=== PATIENT | female | born 1975 | race Hispanic/Latino ===

== ENCOUNTER 2023-06-17 21:29 | Emergency (ER) | payer BC, MEDICAID ==
[~2023-06-17] VITALS: Ht 149.9 cm; Wt 78.5 kg
[2023-06-17] MEDS ORDERED: ONDANSETRON 4MG INJ ONE (22:01)
[2023-06-17 22:07] LABS: APPEARANCE,URINE CLOUDY (CLEAR); BILIRUBIN,URINE NEGATIVE (NEGATIVE); COLOR,URINE YELLOW (YELLOW); GLUCOSE, URINE (UA) NEGATIVE (NEGATIVE); KETONES,URINE 5 mg/dL (NEGATIVE); LEUKOCYTE ESTERASE ,URINE NEGATIVE Leu/uL (NEGATIVE); NITRATE,URINE NEGATIVE (NEGATIVE); PH,URINE 5.5 (5.0-8.0); PROTEIN,URINE 100 mg/dL (NEGATIVE); UROBILINOGEN,URINE 0.2 mg/dL (0.2-1.0)
[2023-06-17 22:13] LABS: BASOPHILS # (AUTO) 0.02 K/uL (0.00-0.20); BASOPHILS % (AUTO) 0.2 % (0.0-5.0); EOSINOPHILS % (AUTO) 1.7 % (0.0-8.0); HEMATOCRIT 40.4 % (36-48); IMMATURE GRANULOCYTE ABSOLUTE 0.03 K/uL (0-1); LYMPHOCYTES % (AUTO) 9.1 % (21.0-51.0); MEAN CORPUSCULAR HEMOGLOBIN 28.7 pg (27.0-33.0); MEAN CORPUSCULAR HGB CONC 32.7 g/dL (32.0-36.0); MEAN CORPUSCULAR VOLUME 87.8 fL (79-99); MONOCYTES # (AUTO) 0.4 K/uL (0.1-1.0); MONOCYTES % (AUTO) 3.6 % (3.0-13.0); NEUTROPHILS # (AUTO) 9.7 K/uL (1.8-7.7); NEUTROPHILS % (AUTO) 85.1 % (40.0-77.0); PLATELET COUNT (AUTO) 280 K/uL (130-400); WHITE BLOOD COUNT (AUTO) 11.4 K/uL (4.8-10.8)
[2023-06-17 22:15] LABS: SARS-CoV-2, RNA, NAAT NEGATIVE SARS CoV-2 (NEGATIVE)
[2023-06-17 22:17] LABS: ADD UA MICROSCOPIC YES
[2023-06-17] MEDS ORDERED: DIPHENOXYLATE HCL/ATROPINE 2.5/0.025 MG TAB PO ONE ×2 (22:20→22:30)
[2023-06-17 22:23] LABS: INFLUENZA TYPE A Negative For Type A (NEGATIVE); INFLUENZA TYPE B Negative For Type B (NEGATIVE)
[2023-06-17 22:25] LABS: CREATININE 0.8 mg/dL (0.5-1.5); POTASSIUM 3.6 mmol/L (3.5-5.1)
[2023-06-17 22:30] LABS: ALBUMIN 4.2 g/dL (3.5-5.0); BILIRUBIN,TOTAL 0.5 mg/dL (0.2-1.0); TOTAL PROTEIN, SERUM 8.3 g/dL (6.0-8.3)
[2023-06-17] MEDS ORDERED: ONDANSETRON 4MG INJ IVP ONE (22:30)
[2023-06-17] MEDS ORDERED: 0.9%NACL 1000ML 1,000 ML IV ONE (22:30)
[2023-06-17] MEDS ORDERED: 0.9%NACL 1000ML 1,000 ML IV SCH (22:30)
[2023-06-17 22:40] VITALS: BP 125/54; PULSE 90; RESP 16; O2SAT 98
[2023-06-17 22:58] LABS: BACTERIA,URINE RARE /HPF (None Seen); MUCUS,URINE MOD LPF (None Seen); SQUAMOUS EPITHELIAL CELL,UR FEW /HPF (0-2)
[2023-06-17 23:02] LABS: WBC MORPHOLOGY CONSISTENT W/DIFF
[2023-06-17] MEDS ORDERED: OMEP40CA21 PO (23:11)
[2023-06-17] MEDS ORDERED: ONDA-104 PO (23:11)
[2023-06-17] MEDS ORDERED: DIPH1TAB PO (23:11)
== END 2023-06-17 23:20 | disposition home or self-care (01) ==
LOC: EDH 21:29
DX: K52.9 Noninfective gastroenteritis and colitis, unspecified (principal); R11.2 Nausea with vomiting, unspecified; I10 Essential (primary) hypertension; E11.9 Type 2 diabetes mellitus without complications; E03.9 Hypothyroidism, unspecified; Z90.710 Acquired absence of both cervix and uterus; Z20.822 Contact with and (suspected) exposure to COVID-19
CPT/HCPCS: 99284; 96374; 87635; 84484; 80053; 83690; 85025; 87804 ×2; 81001; 36415; 93005; C9803; J7030 ×2; J2405